=== PATIENT | female | born 1960 | race Caucasian/White ===

== ENCOUNTER 2018-04-03 09:42 | Inpatient (IN) | payer OTHER ==
[~2018-04-03] VITALS: Ht 152.4 cm; Wt 63.5 kg
[~2018-04-03 09:42] MED LIST: AUGMENTIN 875-1 EACH PO; PERCOCET 5-3251 EACH PO
--- NOTE | 2018-04-03 09:53 | ED GENERAL ADULT ---
History of Present Illness General Chief Complaint: Chest Pain Stated Complaint: CHEST PAIN AND SOB Source: patient Exam Limitations: no limitations Vital Signs & Intake/Output Vital Signs & Intake/Output Vital Signs Date Time Temp Pulse Resp B/P B/P Pulse O2 O2 Flow FiO2 Mean Ox Delivery Rate 04/04 1456 98.6 84 20 122/70 96 Room Air ED Intake and Output 04/05 0000 04/04 1200 Intake Total 400 120 Output Total 650 Balance -250 120 Intake, Oral 400 120 Output, Urine 650 Patient 140 lb Weight Weight Bed scale Measurement Method Allergies Coded Allergies: No Known Drug Allergies (NONE 04/03/18) Reconcile Medications Aspirin (Ecotrin*) 81 MG TABLET.DR 1 TAB PO DAILY hyperlipidemia . Atorvastatin Calcium 80 MG TABLET 1 TAB PO DAILY Hyperlipidemia . Nicotine (Nicotine Patch) 21 MG/24 HOUR PATCH.TD24 1 PAT TOP DAILY Smoking Cessation . Triage Note: PT STATES SHE HAS HAD CHEST PAIN THAT HAS BEEN GOING ON FOR A COUPLE OF DAYS. PT STATES SOMETIMES THE PAIN IS SHARP AND SOMETIMES SHE HAS IT GOING INTO HER LEFT ARM. PT STATES NAUSEA AND HER LIPS FEEL FUNNY ON AND OFF. Triage Nurses Notes Reviewed? yes HPI: 57-year-old female presents with 2 days of chest pain in the mid chest with radiation to the left chest sometimes. She reports she is a smoker. She denies diabetes, history of ID. She denies any medical issues or chronic medications. She denies shortness of breath, phlegm, hemoptysis, leg swelling, recent immobilization or surgery. She denies history of DVT or PE. Past History Travel History Traveled to [place] past 21 day No Medical History Any Pertinent Medical History? 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 No Review of Systems Review of Systems Constitutional: Denies: no symptoms. EENTM: Denies: no symptoms. Respiratory: Denies: no symptoms. Cardiovascular: Reports: chest pain. Denies: edema, orthopena, palpitations, peripheral edema, syncope. GI: Denies: abdominal pain, constipation, diarrhea. Musculoskeletal: Denies: back pain. Skin: Denies: no symptoms. Neurological/Psychological: Denies: no symptoms. Hematologic/Endocrine: Denies: no symptoms. Physical Exam Physical Exam General Appearance: well developed/nourished Head: atraumatic Eyes: Bilateral: normal appearance, PERRL. Ears, Nose, Throat: normal ENT inspection Neck: normal inspection, JVD Respiratory: normal breath sounds, chest non-tender, no respiratory distress Cardiovascular: regular rate/rhythm Gastrointestinal: soft, non-tender Neurologic/Psych: no motor/sensory deficits, oriented x 3 Skin: intact, normal color, warm/dry Core Measures ACS in differential dx? Yes CVA/TIA Diagnosis: No Sepsis Present: No Sepsis Focused Exam Completed? No Progress Differential Diagnoses 57-year-old presents with chest pain, showing a right bundle branch block which is new. Concern for PE. Vital signs are stable at this time. We will start evaluation, order d-dimer and get a chest x-ray with labs. Less likely to be ID. Patient has had 3 days of pain without any exertional component, shortness of breath. Plan of Care: Orders Procedure Date/time Status Discharge Patient 04/04 UNK Active Initial ED EKG: sinus rate of 96, nl axis, QRSD 132, RBBB. no acute St-T changes. compared to 08/04/04- no acute change Prior EKG: changed Comments: 04/[address] 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 Once the patient to be on aspirin and not heparinize at this point. Luis Schmitz accepted the patient. MOD was informed. We will try nitroglycerin for the pain. HEART score of 4 Departure Departure Time of Disposition: 1257 Disposition: STILL A PATIENT Condition: Stable Clinical Impression Primary Impression: Chest pain Referrals: Mindi MCNEILL,Austin Méndez (PCP/Family) Departure Forms: Customer Survey General Discharge Information Prescriptions: Current Visit Scripts Aspirin (Ecotrin*) 1 TAB PO DAILY #30 TAB . Atorvastatin Calcium 1 TAB PO DAILY #30 TAB . Nicotine (Nicotine Patch) 1 PAT TOP DAILY #28 PAT . Admission Note Spoke With: Nadir MCNEILL,John Paul Hightower Documentation of Exam: Documentation of any treatments & extenuating circumstances including Concerns Regarding Discharge (functional status, medication knowledge or non-compliance, living conditions, etc.) that warrant an admission rather than observation: 57- year-old female with elevated heart score. With new EKG changes compared to the previous EKG. Risk factors include smoking and age. The patient will need cardiology evaluation for further workup for her chest pain. Critical Care Note Critical Care Note Critical Care Time: non-applicable
[2018-04-03 10:19] LABS: ABSOLUTE BASOPHIL COUNT 0 /CUMM (0.0-0.2); ABSOLUTE EOSINOPHIL COUNT 0 /CUMM (0.0-0.7); ABSOLUTE GRANULOCYTE CT 3.9 /CUMM (1.4-6.5); ABSOLUTE LYMPH COUNT 1.5 /CUMM (1.2-3.4); ABSOLUTE MONOCYTE COUNT 0.5 /CUMM (0.10-0.60); BASOPHIL % 0.6 % (0.0-2.0); EOSINOPHIL % 0.8 % (0-5); GRANULOCYTE % 64.6 % (42.2-75.2); HEMATOCRIT 42.6 % (37-47); MEAN CORPUSCULAR HGB 29.2 PG (27.0-31.0); MEAN CORPUSCULAR VOLUME 85.8 FL (81.0-99.0); MEAN PLATELET VOLUME 7.8 FL (7.4-10.4); PLATELET COUNT 327 /CUMM (130-400); RED BLOOD CELL CT 4.97 /CUMM (4.20-5.40)
--- NOTE | 2018-04-03 11:46 | RADIOLOGY REPORT ---
EXAMINATION: XR CHEST CLINICAL INFORMATION: Chest pain. COMPARISON: None TECHNIQUE: 2 views of the chest were obtained. FINDINGS: The cardiomediastinal silhouette is within normal limits in size. Lungs bilaterally are symmetrically expanded and clear. No focal consolidation, effusion or pneumothorax is seen. There there is a minimal convex right thoracic scoliosis. IMPRESSION: No acute cardiopulmonary process.
--- NOTE | 2018-04-03 13:01 | History & Physical ---
Mabel Vásquez 04/03/18 1301: General Information and HPI MD Statement: I have seen and personally examined EDNA OLMEDO and documented this H&P. The patient is a 57 year old F who presented with a patient stated chief complaint of [chest pain]. Source of Information: patient Exam Limitations: no limitations History of Present Illness: Patient is a 57-year-old female with past medical history of fibromyalgia, hyperlipidemia, Faraz's thyroiditis came with a chief complaint of chest pain. Patient states that her chest pain has been going on since past 3 days, it is pressure-like and achy in nature and sharp intermittently. At worst it is 7/10. Patient also reports of shortness of breath on exertion and associated nausea. Patient states that she feels so weak that she has not moved a lot in the past 3 days and has been on the couch most of the time. Of note patient had chest pain 5 years ago and was diagnosed with costochondritis. At that time she had a stress test done which was negative for any cardiac abnormalities. Patient states that she continues to smoke around half a pack to a pack a day and stated that she wants to abstain while in hospital and refused nicotine patch. Her review of system is also positive for headache which is improved after Tylenol, urinary urgency and hesitancy but no burning micturition. Patient states that her urinary symptoms have been going on since past 1 month. She denies any fever or chills. Patient denies any palpitations, abdominal discomfort, pain or swelling in the legs. She lives at home with family, and does not take any medications other than homeopathic prescriptions. 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 Home Who Do You Live With? spouse, child Smoking Status: Current Some Day Smoker ETOH Use: denies use Illicit Drug Use: denies illicit drug use Functional Ability ADLs Independent: dressing, eating, toileting, bathing. Ambulation: independent Review of Systems Review of Systems Constitutional: Reports: see HPI. Exam & Diagnostic Data Last 24 Hrs of Vital Signs/I&O Vital Signs Date Time Temp Pulse Resp B/P B/P Pulse O2 O2 Flow FiO2 Mean Ox Delivery Rate 04/03 1332 98.1 04/03 1227 98.1 04/03 1221 98.1 82 18 133/74 99 Room Air Room Air 04/03 1147 98.5 82 18 130/68 97 Room Air 04/03 1000 97 Room Air Room Air 04/03 0952 97.8 97 18 179/97 97 Room Air Intake & Output 04/03 1600 04/03 0800 04/03 0000 Intake Total 1000 Output Total Balance 1000 Intake, IV 1000 Patient 62.596 kg Weight Weight Reported by Patient Measurement Method Physical Exam General Appearance Alert, Oriented X3, Cooperative, No Acute Distress Skin No Rashes Skin Temp/Moisture Exam: Warm/Dry HEENT Atraumatic Neck Supple, No JVD Cardiovascular Regular Rate, Normal S1, Normal S2 Lungs Clear to Auscultation, Normal Air Movement Abdomen Normal Bowel Sounds, Soft, No Tenderness Neurological Normal Gait, Normal Speech Extremities No Edema Assessment/Plan Assessment: Patient is a 57-year-old female with past medical history of fibromyalgia, hyperlipidemia, Faraz's thyroiditis came with a chief complaint of chest pain. Patient states that her chest pain has been going on since past 3 days, it is pressure-like and achy in nature and sharp intermittently. At worst it is 7/10. Patient also reports of shortness of breath on exertion and associated nausea. Patient states that she feels so weak that she has not moved a lot in the past 3 days and has been on the couch most of the time. Of note patient had chest pain 5 years ago and was diagnosed with costochondritis. At that time she had a stress test done which was negative for any cardiac abnormalities. Patient states that she continues to smoke around half a pack to a pack a day and stated that she wants to abstain while in hospital and refused nicotine patch. Her review of system is also positive for headache which is improved after Tylenol, urinary urgency and hesitancy but no burning micturition. Patient states that her urinary symptoms have been going on since past 1 month. She denies any fever or chills. Labs and vitals as above. Chest x-ray not significant for any acute pulmonary pathology. Problem list Chest pain, rule out ACS History of Faraz's thyroiditis History of hyperlipidemia History of fibromyalgia. Pain points shoulder bilaterally base of neck and upper back. EKG shows old Q waves in inferior leads, ST segment depression in V4 V5, and new right bundle branch block as compared to her previous EKG from 2004. Patient also has diffuse nonspecific T wave changes. Assessment and plan Will monitor the patient on telemetry floor, rule out ACS through serial troponins and EKG. Her first set of troponin is negative. Will get cardiology consult. Will order echocardiogram. Patient got loading dose of aspirin in the ER, we will maintain her on 81 aspirin daily. Will check her lipid panel and empirically start her on atorvastatin given her EKG changes and high suspicion of ACS. Patient is not on any medical treatment for Faraz's thyroiditis, she states the last time she followed up with an mounting inspector was 2 and half years ago, she was initially put on some infusion treatments but she stopped taking them. Lately patient has been taking TYROSIN for her Faraz's thyroiditis and states that it has been helping. Will check her TSH and free T4. If abnormal, she might need endocrinology consult. Patient has a UA positive for leukocyte esterase and white blood cell, however she states that her urinary hesitancy and urgency are going on since 1 month, we will obtain urine culture and follow-up. Patient smokes half a pack to 1 pack per day, she is currently refusing for nicotine patch, and states that she will ask for it when she needs it. DVT prophylaxis subcutaneous Lovenox Patient is full code. As Ranked By This Provider Problem List: 1. Chest pain Core Measures/Misc (05/28) Acute Coronary Syndrome ACS Diagnosis: Yes Congestive Heart Failure Congestive Heart Failure Diagnosis No Cerebrovascular Accident CVA/TIA Diagnosis: No VTE (View Protocol) VTE Risk Factors Age>40 No Mechanical VTE Prophylaxis d/t N/A MechProphylax Ordered No VTE Pharm Prophylaxis d/t NA PharmProphylax ordered Sepsis (View protocol) Sepsis Present: No If YES complete Sepsis Event Note If YES complete Sepsis Event Note John Paul Schmitz 04/03/18 2722: General Information and HPI Allergies/Medications Allergies: Coded Allergies: No Known Drug Allergies (NONE 04/03/18) Core Measures/Misc (05/28) Sepsis (View protocol) If YES complete Sepsis Event Note If YES complete Sepsis Event Note Attending MD Review Statement Attending Statement Attending MD Statement: examined this patient, discuss w/resident/PA/ABRASIVE MIXER HELPER, agreed w/resident/PA/ABRASIVE MIXER HELPER, reviewed EMR data (avail) Attending Assessment/Plan: 57 yr old female with pmh of smoking ( 1/2 to 1 PPD since age 15) , HLD, Fibromyalgia, Hashimotos thyroiditis not on any meds, ? lyme ds or babesiosis for which she got abx 3 years ago, costochondritis 5 years ago , stress test done at [facility] in [place] 5 years ago who follows up with Dr Obregon presented with c/c of chest pain for 3 days, which is 7/10 in severity on and off , mid sternal with occasional radiation to left axilla . Pt also has been having nausea for one week but no vomiting. also some exertional sob. Pt on EKG in ER showed some q waves in inferior leads and shows new RBBB and LPFB and some ST-T changes ( this was compared to previous ecg from 2003 in our system) . Pt says she had EKG done at her PCP office 2 months ago. Chest pain r/o ACS - will admit her to telemetry. do serial troponins. repeat ekg in am. will get stress test results from deputy sheriff chief and ekg from pcp office. will f/u on cardiology recommendations. cont on asa and statin. Nicotine dependence- start on nicotine patch. ? faraz thyroiditis- will get TSH and free T4.
--- NOTE | 2018-04-03 15:15 | Cons- Cardiology ---
General Information and HPI Consulting Request Date of Consult: 04/03/18 Requested By: Nadir MCNEILL,John Paul Hightower Reason for Consult: Chest pain History of Present Illness: The patient is a 57-year-old female with history of fibromyalgia, hyperlipidemia , and Gregoria's thyroiditis who presents with complaint of chest discomfort the chest discomfort has been occurring for the past 3 days. She describes it as sometimes substernal and sometimes on the left side. The pain is sometimes sharp and sometimes dull. The discomfort varies up to a 9 out of 10 in severity. She also notes shortness of breath associated with chest discomfort and intermittent nausea. She notes that 5 years ago she had chest pain, and she was diagnosed with costochondritis. She had a stress test at that time which was negative. No lightheadedness or dizziness. No nausea or vomiting. No palpitations. No diaphoresis. The patient unfortunately continues to smoke one half pack per day. Allergies/Medications Allergies: Coded Allergies: No Known Drug Allergies (NONE 04/03/18) Home Med List: No Known Home Medications Current Medications: Current Medications Sig/Samir Start time Last Medication Dose Route Stop Time Status Admin Acetaminophen 650 MG Q8P PRN 04/03 1415 AC PO Acetaminophen 650 MG ONCE ONE 04/03 1230 DC 04/03 PO 04/03 1231 1227 Acetaminophen 0 .STK-MED ONE 04/03 1227 DC PO Aspirin 81 MG DAILY 04/04 0900 AC PO Aspirin 0 .STK-MED ONE 04/03 1251 DC PO Aspirin 325 MG ONCE ONE 04/03 1245 DC 04/03 PO 04/03 1246 1250 Atorvastatin Calcium 20 MG 1700 04/03 1700 DC PO Atorvastatin Calcium 80 MG 0 04/03 1700 AC PO Enoxaparin Sodium 40 MG DAILY 04/04 0900 AC SC Lactated Ringer's 1,000 ML ONCE ONE 04/03 1015 DC 04/03 IV 04/03 1016 1110 Nicotine 0 .STK-MED ONE 04/03 1457 DC TOP Nicotine 21 MG DAILY 04/03 1445 AC 04/03 TOP 1459 Review of Systems Review of Systems: No rash. No tremor. No fever. No chills. All other systems were reviewed, and were noted to be negative. 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 Home Who Do You Live With? spouse, child Smoking Status: Current Some Day Smoker ETOH Use: denies use Illicit Drug Use: denies illicit drug use Functional Ability ADLs Independent: dressing, eating, toileting, bathing. Ambulation: independent Exam & Diagnostic Data Vital Signs and I&O Vital Signs Date Time Temp Pulse Resp B/P B/P Pulse O2 O2 Flow FiO2 Mean Ox Delivery Rate 04/03 1615 98.2 76 20 142/80 97 Room Air 04/03 1615 97 Room Air 04/03 1556 98.4 92 18 140/86 99 Room Air 04/03 1332 98.1 04/03 1227 98.1 04/03 1221 98.1 82 18 133/74 99 Room Air Room Air 04/03 1147 98.5 82 18 130/68 97 Room Air 04/03 1000 97 Room Air Room Air 04/03 0952 97.8 97 18 179/97 97 Room Air Intake & Output 04/03 1600 04/03 0800 04/03 0000 04/02 1600 04/02 0800 04/02 0000 Intake Total 1000 Output Total Balance 1000 Intake, IV 1000 Patient 138 lb Weight Weight Reported by Patient Measurement Method Physical Exam: Gen: The patient is in no acute distress HEENT: Normal nose, ears, and oropharynx. Pupils equal bilaterally. Conjunctiva normal. Neck: Supple with no JVD, no masses, and no thyromegaly Lungs: Clear to auscultation with normal respiratory effort Heart: RRR, S1, S2, no murmurs. No peripheral edema, 2+ pulses in the lower extremities bilaterally Abdomen: Soft, nontender, no masses. No hepatomegaly. No splenomegaly Extremities: No clubbing or cyanosis. Normal muscle strength in the upper and lower extremities Skin: Normal skin turgor with no skin ulcers or lesions noted. Neuro: Cranial nerves intact. Sensation intact Psych: Alert and oriented x 3 with appropriate affect Labs/Sebastián Results: Laboratory Tests 04/03 04/03 1550 1013 Chemistry Troponin I (< 0.11 ng/ml) < 0.01 Urines Urine Color (YEL,AMB,STR) YEL Urine Clarity (CLEAR) CLEAR Urine pH (5.0 - 8.0) 6.0 Ur Specific [place] (1.001 - 1.035) 1.025 Urine Protein (NEG,<30 MG/DL) TRACE H Urine Ketones (NEG) NEG Urine Nitrite (NEG) NEG Urine Bilirubin (NEG) NEG Urine Urobilinogen (0.1 - 1.0 EU/dl) 0.2 Ur Leukocyte Esterase (NEG) SMALL H Ur Microscopic SEDIMENT EXAMINED Urine RBC (0 - 5 /HPF) 1-3 Urine WBC (0 - 2 /HPF) 10-15 H Ur Epithelial Cells (NONE,FEW) MANY H Urine Bacteria (NEG/NONE) FEW H Urine Hemoglobin (NEG) SMALL H Urine Glucose (N MG/DL) NEG 04/03 1008 Chemistry Sodium (137 - 145 mmol/L) 142 Potassium (3.5 - 5.1 mmol/L) 3.8 Chloride (98 - 107 mmol/L) 105 Carbon Dioxide (22 - 30 mmol/L) 25 Anion Gap (5 - 16) 12 BUN (7 - 17 mg/dL) 19 H Creatinine (0.5 - 1.0 mg/dL) 0.5 Estimated GFR (>60 ml/min) > 60 BUN/Creatinine Ratio (7 - 25 %) 38.0 H Glucose (65 - 99 mg/dL) 106 H Calcium (8.4 - 10.2 mg/dL) 10.1 Total Bilirubin (0.2 - 1.3 mg/dL) 0.3 AST (14 - 36 U/L) 35 ALT (9 - 52 U/L) 49 Alkaline Phosphatase (<127 U/L) 103 Troponin I (< 0.11 ng/ml) < 0.01 Total Protein (6.3 - 8.2 g/dL) 7.3 Albumin (3.5 - 5.0 g/dL) 4.3 Globulin (1.9 - 4.2 gm/dL) 3.0 Albumin/Globulin Ratio (1.1 - 2.2 %) 1.4 Triglycerides (<150 mg/dL) 173 H Cholesterol (<200 MG/DL) 294 H LDL Cholesterol, Calc (65 - 129 mg/dL) 205 H HDL Cholesterol (40 - 60 mg/dL) 55 Cholesterol/HDL Ratio (0.00 - 4.23 %) 5 H TSH (0.270 - 4.200 uIU/mL) 0.652 Free T4 (0.64 - 1.79 ng/dL) 0.98 Coagulation D-Dimer High Sensitivty (0 - 243 ng/ml) < 200 Hematology CBC w Diff NO MAN DIFF REQ WBC (4.8 - 10.8 /CUMM) 6.0 RBC (4.20 - 5.40 /CUMM) 4.97 Hgb (12.0 - 16.0 G/DL) 14.5 Hct (37 - 47 %) 42.6 MCV (81.0 - 99.0 FL) 85.8 MCH (27.0 - 31.0 PG) 29.2 MCHC (33.0 - 37.0 G/DL) 34.0 RDW (11.5 - 14.5 %) 14.0 Plt Count (130 - 400 /CUMM) 327 MPV (7.4 - 10.4 FL) 7.8 Gran % (42.2 - 75.2 %) 64.6 Lymphocytes % (20.5 - 51.1 %) 25.8 Monocytes % (1.7 - 9.3 %) 8.2 Eosinophils % (0 - 5 %) 0.8 Basophils % (0.0 - 2.0 %) 0.6 Absolute Granulocytes (1.4 - 6.5 /CUMM) 3.9 Absolute Lymphocytes (1.2 - 3.4 /CUMM) 1.5 Absolute Monocytes (0.10 - 0.60 /CUMM) 0.5 Absolute Eosinophils (0.0 - 0.7 /CUMM) 0 Absolute Basophils (0.0 - 0.2 /CUMM) 0 Diagnostic Data EKG Results EKG tracings independently reviewed, and reveals normal sinus rhythm at 96, left atrial normality, right bundle branch block, and left posterior fascicular block CXR Results Negative Assessment/Plan Assessment/Plan 57-year-old female with history of fibromyalgia, hyperlipidemia, and costochondritis presenting with chest discomfort 3 days. She is noted to have new right bundle branch block on her EKG. Recommendations: * Monitor on telemetry overnight * Check serial troponin to rule out myocardial infarction * Echocardiogram in the hospital if possible, or else as an outpatient * Aspirin 81 mg daily * Continue atorvastatin * Stress testing, probably as outpatient if the patient remains stable Consult Acknowledgment - Thank you for your consult request.
--- NOTE | 2018-04-03 15:43 | Admission Certification ---
Admission Certification Certification Statement - As attending physician, I certify that at the time of - admission, based on clinical presentation, severity of - symptoms, need for further diagnostic testing and - therapeutic interventions, and risk of adverse outcomes - without in-hospital treatment, in my clinical assessment, - this patient requires an acute hospital stay for a minimum - of two nights or longer. I have also considered psychsocial - factors such as support system, advanced age, financial - issues, cognitive issues, and failed out-patient treatments, - past re-admission history, safety of patient, and lack of - compliance as applicable. Specific rationale supporting this admission is: chest pain r/o ACS
[2018-04-03 16:15] VITALS: BP 142/80
[2018-04-03 22:56] VITALS: BP 158/90
[2018-04-04 06:00] VITALS: BP 140/90
--- NOTE | 2018-04-04 06:45 | PN- Housestaff ---
Jennifer Marcano 04/04/18 0645: Subjective Follow-up For: Chest Pain Tele-Events Since Last Visit: Normal sinus rhythm, 72, 0.14, 0.16 Subjective: Patient seen and examined at bedside this morning. Patient claims her chest pain has significantly reduced from yesterday and no longer radiates to the left axillary region as it did on the day of admission with associated numbness and tingling. The patient's pain character has been described in multiple ways including pressure and sharp. Patient denies any shortness of breath, diaphoresis, palpitations, nausea, vomiting, abdominal pain or any constipation this morning. Vital signs remained stable. Review of Systems Constitutional: Denies: see HPI. Objective Last 24 Hrs of Vital Signs/I&O Vital Signs Date Time Temp Pulse Resp B/P B/P Pulse O2 O2 Flow FiO2 Mean Ox Delivery Rate 04/04 0600 98.1 76 18 140/90 97 04/03 2256 98.2 69 18 158/90 96 Room Air 04/03 1615 98.2 76 20 142/80 97 Room Air 04/03 1615 97 Room Air 04/03 1556 98.4 92 18 140/86 99 Room Air 04/03 1332 98.1 04/03 1227 98.1 04/03 1221 98.1 82 18 133/74 99 Room Air Room Air 04/03 1147 98.5 82 18 130/68 97 Room Air Intake & Output 04/04 1600 04/04 0800 04/04 0000 Intake Total 120 120 Output Total Balance 120 120 Intake, Oral 120 120 Patient 140 lb 140 lb Weight Weight Bed scale Bed scale Measurement Method Physical Exam General Appearance: Alert, Oriented X3, Cooperative, No Acute Distress HEENT: PERRLA, EOMI, Mucous Membr. moist/pink Neck: No JVD, No thryomegaly Cardiovascular: Regular Rate, Normal S1, Normal S2 Lungs: Clear to Auscultation, Normal Air Movement Abdomen: Normal Bowel Sounds, Soft, No Tenderness Neurological: Strength at 5/5 X4 Ext, Normal Tone, Sensation Intact, Cranial Nerves 3-12 NL, Reflexes 2+ Extremities: No Cyanosis, No Edema Vascular: Normal Pulses, Pulses Symmetrical Current Medications: Current Medications Sig/Samir Start time Last Medication Dose Route Stop Time Status Admin Acetaminophen 650 MG Q8P PRN 04/03 1415 AC 04/03 PO 2244 Acetaminophen 650 MG ONCE ONE 04/03 1230 DC 04/03 PO 04/03 1231 1227 Acetaminophen 0 .STK-MED ONE 04/03 1227 DC PO Aspirin 81 MG DAILY 04/04 0900 AC 04/04 PO 0741 Aspirin 0 .STK-MED ONE 04/03 1251 DC PO Aspirin 325 MG ONCE ONE 04/03 1245 DC 04/03 PO 04/03 1246 1250 Atorvastatin Calcium 20 MG 1700 04/03 1700 DC PO Atorvastatin Calcium 80 MG 0 04/03 1700 AC PO Enoxaparin Sodium 40 MG DAILY 04/04 0900 AC 04/04 SC 0741 Nicotine 0 .STK-MED ONE 04/03 1457 DC TOP Nicotine 21 MG DAILY 04/03 1445 AC 04/04 TOP 0742 Last 24 Hrs of Lab/Sebastián Results Last 24 Hrs of Labs/Mics: Laboratory Tests 04/04/18 0600: Anion Gap 12, Estimated GFR > 60, BUN/Creatinine Ratio 28.3 H 04/03/18 2210: Troponin I < 0.01 04/03/18 1550: Troponin I < 0.01 Assessment/Plan Assessment: Patient is a 57-year-old female with a [id number] smoking history of past medical history of fibromyalgia, hyperlipidemia, Gregoria's thyroiditis with recent ultrasound reported to patient demonstrating 2 new nodules measuring at 2 -3 mm each, chronic Lyme disease with reported concurrent babesiosis as per patient, costochondritis 5 years ago all for which patient follows up with a naturopathic doctor. She presented to the ED 1 day ago with a presentation of intermittent chest pain and tightness that radiated to the left axilla and arms bilaterally associated with tingling to the fingers and nausea and dyspnea on exertion. Checks x-ray negative for any cardio pulmonary pathologies. EKG demonstrated old Q waves in inferior leads, ST depressions in V4 and V5, new right bundle branch block and nonspecific T-wave abnormalities. Last known EKG in 2003 demonstrated normal sinus rhythm with no previous findings. As per patient, reported to have an EKG several weeks prior at her primary care doctors , Dr. Obregon. Troponins on admission were negative 3. Problem list: 1. Chest pain 2. Hyperlipidemia 3. Gregoria's thyroiditis 4. Fibromyalgia 5. History of tobacco use 6. 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 Chest pain Pain Ratin Pain Location: midsternum Pain Goal: Pain 4 or less Pain Plan: as per pain pathway Tomorrow's Labs & Rationales: N/A DVT/Prophylaxis: mechanical, pharmacological John Paul Schmitz 04/04/18 1304: Attending MD Review Statement Attending Statement Attending MD Statement: examined this patient, discuss w/resident/PA/DIRECTOR WHOLESALE, agreed w/resident/PA/DIRECTOR WHOLESALE, reviewed EMR data (avail), discussed with nursing, discussed with case mgmt Attending Assessment/Plan: Chest pain- trop negative and chest pain better today. will f/u on cardio recommendations. ehco pending. cont on asa and lipitor. cholesterol levels high. Smoking cessation- counselled pt to quit smoking. d/w pt the care plan.
--- NOTE | 2018-04-04 08:11 | PN- Student ---
Subjective Subjective: Pt was seen and examined at bedside this morning. She is feeling well overall, though fatigued and like "something is not quite right." Chest pain is reduced from yesterday and does not radiate to L axilla as it did yesterday or down into her arms. The pain feels like it is sharp and tight. She feels like her breathing is a bit shallow but is otherwise not having difficulty breathing. She denies diaphoresis, palpitations, nausea, abdominal pain, constipation, and leg pain this morning. Objective Objective: Vital Signs Date Time Temp Pulse Resp B/P B/P Pulse O2 O2 Flow FiO2 Mean Ox Delivery Rate 04/04 0600 98.1 76 18 140/90 97 04/03 2256 98.2 69 18 158/90 96 Room Air 04/03 1615 98.2 76 20 142/80 97 Room Air 04/03 1615 97 Room Air 04/03 1556 98.4 92 18 140/86 99 Room Air 04/03 1332 98.1 04/03 1227 98.1 04/03 1221 98.1 82 18 133/74 99 Room Air Room Air 04/03 1147 98.5 82 18 130/68 97 Room Air 04/03 1000 97 Room Air Room Air 04/03 0952 97.8 97 18 179/97 97 Room Air Intake & Output 04/04 1600 04/04 0800 04/04 0000 Intake Total 120 120 Output Total Balance 120 120 Intake, Oral 120 120 Patient 140 lb 140 lb Weight Weight Bed scale Bed scale Measurement Method Tele: NSR from 63-75bpm with BBB at 00:00 PE: Gen - NAD, cooperative Psych - AOx4 Neuro - CN 3-12 intact except for L sided parasthesia on the face, biceps and patellar reflexes symmetrical Chest wall - no tenderness to palpation CV - RRR no MRG Pulm - CTA BL, good air entry Abd - +BS, soft, nontender, nondistended Ext - warm and well perfused, DP and PT pulses 2+ BL, no edema Results Results: Laboratory Tests Laboratory Tests 04/04 04/03 04/03 0600 2210 1550 Chemistry Sodium (137 - 145 mmol/L) 143 Potassium (3.5 - 5.1 mmol/L) 4.3 Chloride (98 - 107 mmol/L) 104 Carbon Dioxide (22 - 30 mmol/L) 27 Anion Gap (5 - 16) 12 BUN (7 - 17 mg/dL) 17 Creatinine (0.5 - 1.0 mg/dL) 0.6 Estimated GFR (>60 ml/min) > 60 BUN/Creatinine Ratio (7 - 25 %) 28.3 H Troponin I (< 0.11 ng/ml) < 0.01 < 0.01 04/03 04/03 1013 1008 Chemistry Sodium (137 - 145 mmol/L) 142 Potassium (3.5 - 5.1 mmol/L) 3.8 Chloride (98 - 107 mmol/L) 105 Carbon Dioxide (22 - 30 mmol/L) 25 Anion Gap (5 - 16) 12 BUN (7 - 17 mg/dL) 19 H Creatinine (0.5 - 1.0 mg/dL) 0.5 Estimated GFR (>60 ml/min) > 60 BUN/Creatinine Ratio (7 - 25 %) 38.0 H Glucose (65 - 99 mg/dL) 106 H Calcium (8.4 - 10.2 mg/dL) 10.1 Total Bilirubin (0.2 - 1.3 mg/dL) 0.3 AST (14 - 36 U/L) 35 ALT (9 - 52 U/L) 49 Alkaline Phosphatase (<127 U/L) 103 Troponin I (< 0.11 ng/ml) < 0.01 Total Protein (6.3 - 8.2 g/dL) 7.3 Albumin (3.5 - 5.0 g/dL) 4.3 Globulin (1.9 - 4.2 gm/dL) 3.0 Albumin/Globulin Ratio (1.1 - 2.2 %) 1.4 Triglycerides (<150 mg/dL) 173 H Cholesterol (<200 MG/DL) 294 H LDL Cholesterol, Calc (65 - 129 mg/dL) 205 H HDL Cholesterol (40 - 60 mg/dL) 55 Cholesterol/HDL Ratio (0.00 - 4.23 %) 5 H TSH (0.270 - 4.200 uIU/mL) 0.652 Free T4 (0.64 - 1.79 ng/dL) 0.98 Coagulation D-Dimer High Sensitivty (0 - 243 ng/ml) < 200 Hematology CBC w Diff NO MAN DIFF REQ WBC (4.8 - 10.8 /CUMM) 6.0 RBC (4.20 - 5.40 /CUMM) 4.97 Hgb (12.0 - 16.0 G/DL) 14.5 Hct (37 - 47 %) 42.6 MCV (81.0 - 99.0 FL) 85.8 MCH (27.0 - 31.0 PG) 29.2 MCHC (33.0 - 37.0 G/DL) 34.0 RDW (11.5 - 14.5 %) 14.0 Plt Count (130 - 400 /CUMM) 327 MPV (7.4 - 10.4 FL) 7.8 Gran % (42.2 - 75.2 %) 64.6 Lymphocytes % (20.5 - 51.1 %) 25.8 Monocytes % (1.7 - 9.3 %) 8.2 Eosinophils % (0 - 5 %) 0.8 Basophils % (0.0 - 2.0 %) 0.6 Absolute Granulocytes (1.4 - 6.5 /CUMM) 3.9 Absolute Lymphocytes (1.2 - 3.4 /CUMM) 1.5 Absolute Monocytes (0.10 - 0.60 /CUMM) 0.5 Absolute Eosinophils (0.0 - 0.7 /CUMM) 0 Absolute Basophils (0.0 - 0.2 /CUMM) 0 Urines Urine Color (YEL,AMB,STR) YEL Urine Clarity (CLEAR) CLEAR Urine pH (5.0 - 8.0) 6.0 Ur Specific [place] (1.001 - 1.035) 1.025 Urine Protein (NEG,<30 MG/DL) TRACE H Urine Ketones (NEG) NEG Urine Nitrite (NEG) NEG Urine Bilirubin (NEG) NEG Urine Urobilinogen (0.1 - 1.0 EU/dl) 0.2 Ur Leukocyte Esterase (NEG) SMALL H Ur Microscopic SEDIMENT EXAMINED Urine RBC (0 - 5 /HPF) 1-3 Urine WBC (0 - 2 /HPF) 10-15 H Ur Epithelial Cells (NONE,FEW) MANY H Urine Bacteria (NEG/NONE) FEW H Urine Hemoglobin (NEG) SMALL H Urine Glucose (N MG/DL) NEG Assessment/Plan Assessment: Pt is a 57YOF with ~40pack year smoking hx with a PMH of fibromyalgia, HLD, Gregoria's Thyroiditis with recent US reported by pt to show 2 nodules 2-3mm each, chronic Lyme disease with possible concurrent babesiosis, and costochondritis 14yrs ago for all of which she is using natropathic remedies. She presented to the ED 1 day ago with 3 days of intermittent chest pain and tightness that radiates into the L axilla and arms BL associated with nausa and dyspnea on exertion. CXR showed no thoracic pathologies. EKG showed old Q waves in the inferior leads, ST depression in V4 and V5, new RBBB, new LPFB and diffuse, nonspecific T wave abnormalities. Last known EKG in 2003 showed NSR with none of the above findings. EKG obtained from PCP performed on 01/18/2018 shows RBBB and potential lateral ischemia. Troponins x3 were WNL. UA shows subacute bacteruria. Lipid panel showes elevated cholesterol, TGs, and LDL with chol/HDL of 5. Pt reported the following naturopathic medications: * Banderol 25 drops BID * Samento 25 drops BID * Stevia 15 drops BID * Artemisinin 1 pill BID for 2weeks, then 2 weeks with no pill, then repeat Pt's most recent EKG obtained from her PCP Dr. Obregon. EKG 01/18/2018 - NSR with RBBB and T wave abnormality suggesting lateral ischemia 1. Chest pain with associated dyspnea and nausea * Pt's chest pain cannot be attributed to EKG finding at this time. However, serial troponins indicate there is no acute myocardial injury. Pt's symptoms consistent with acute coronary syndrome. Her ASCVD risk is 10.1%. * Based on risk, patient has been started on ASA, enoxaparin, and atorvastatin. * Pt has been extensively counseled on smoking cessation. * Await results of ECHO and repeat EKG. * F/u cardiology recommendation for stress test. 2. Tobacco Use * Pt has an extensive smoking hx. Has been counseled extensively on cessation. Is interested in being discharged with nicotine patches as she believes they are helping her currently. 3. Hyperlipidemia * Pt has hx of HLD for which she has previously refused medical therapy. She has been placed on a statin and agrees to continue after discharge. 4. Gregoria's Thyroiditis * Stable. TSH and freeT4 WNL. Pt reports outpatient US performed several weeks ago with small nodules found. She does not know of results and can't remember the name of the site where the US was performed. 5. Hx of Lyme disease and babesiosis * Pt using natropathic remedies at this time. Otherwise stable. 6. Fibromyalgia * Pt denies pain at this time. Stable. Diet: heart healthy DVT: enoxaparin Code: full
--- NOTE | 2018-04-04 14:20 | ECHOCARDIOGRAM REPORT ---
EDNA OLMEDO Age: 57 : 1960 Gender: F Exam Date: 04/03/2018 18:47 Exam Location: 1 [address] Ht (in): 60 Wt (lb): 138 BSA: 1.65 BP: 133 / 74 Ordering Physician: Mabel Vásquez MD Referring Physician: Surendra Brock MD Technologist: Magalis Apodaca [facility] Room Number: 171 Indications: Chest pain Rhythm: Sinus Technical Quality: Good FINDINGS Left Ventricle Normal size left ventricle. Normal left ventricular wall thickness. Normal left ventricular ejection fraction visually estimated at > 60%. Normal left ventricular wall motion. Abnormal relaxation filling pattern of the left ventricle for age (stage 1 diastolic dysfunction). Right Ventricle Normal right ventricular size and function. Right Atrium Normal right atrial size. Left Atrium Normal left atrial size. Mitral Valve Mild mitral annular calcification. Trace mitral regurgitation. Aortic Valve Diffuse thickening (sclerosis) of the aortic valve cusps without reduced excursion.no aortic stenosis. No aortic regurgitation. Tricuspid Valve Tricuspid valve not well visualized, grossly normal. Trace tricuspid regurgitation. No evidence of pulmonary hypertension. Pulmonic Valve Pulmonic valve not well visualized, grossly normal. Trace pulmonic regurgitation. Pericardium No pericardial effusion. Great Vessels Normal size aortic root. CONCLUSIONS Normal size left ventricle. Normal left ventricular wall thickness. Normal left ventricular ejection fraction visually estimated at > 60%. Abnormal relaxation filling pattern of the left ventricle for age (stage 1 diastolic dysfunction). Mild mitral annular calcification. Trace tricuspid regurgitation. Trace pulmonic regurgitation. Surendra Brock M.D. (Electronically Signed) Final Date: 04 April 2018 14:14 MEASUREMENTS (Male / Female) Normal Values 2D ECHO LV Diastolic Diameter PLAX 4.1 cm 4.2 - 5.9 / 3.9 - 5.3 cm LV Systolic Diameter PLAX 2.1 cm 2.1 - 4.0 cm LV Fractional Shortening PLAX 48.8 % 25 - 46 % LV Ejection Fraction 2D Teich 80.6 % IVS Diastolic Thickness 1.0 cm LVPW Diastolic Thickness 1.0 cm LV Relative Wall Thickness 0.5 RV Internal Dim ED PLAX 2.3 cm 1.9 - 3.8 cm LVOT Diameter 1.8 cm Aortic Root Diameter 2.7 cm LA Systolic Diameter LX 3.2 cm 3.0 - 4.0 / 2.7 - 3.8 cm LA Volume 33.0 cm 18 - 58 / 22 - 52 cm Ascending Aorta Diameter 3.0 cm DOPPLER AV Peak Velocity 126.0 cm/s AV Peak Gradient 6.4 mmHg AV Mean Velocity 82.1 cm/s AV Mean Gradient 3.0 mmHg AV Velocity Time Integral 24.3 cm LVOT Peak Velocity 99.6 cm/s LVOT Peak Gradient 4.0 mmHg LVOT Mean Velocity 55.3 cm/s LVOT Mean Gradient 2.0 mmHg LVOT Velocity Time Integral 17.4 cm LVOT Stroke Volume 44.3 cm AV Area Cont Eq vti 1.8 cm AV Area Cont Eq pk 2.0 cm MV Peak Velocity 79.7 cm/s MV Peak Gradient 2.5 mmHg MV Mean Velocity 43.4 cm/s MV Mean Gradient 1.0 mmHg Mitral E Point Velocity 54.8 cm/s Mitral A Point Velocity 69.1 cm/s Mitral E to A Ratio 0.8 MV PHT Velocity 67.8 cm/s MV Deceleration [place] 372.0 cm/s MV Pressure Half Time 54.7 ms MV Area PHT 4.0 cm MV Deceleration Time 301.0 ms TR Peak Velocity 117.0 cm/s TR Peak Gradient 5.5 mmHg Right Atrial Pressure 5.0 mmHg Pulmonary Artery Systolic Pressure 10.5 mmHg Right Ventricular Systolic Pressure 10.5 mmHg PV Peak Velocity 96.5 cm/s PV Peak Gradient 3.7 mmHg PV Mean Velocity 70.0 cm/s PV Mean Gradient 2.0 mmHg PV Velocity Time Integral 19.0 cm LV E' Lateral Velocity 6.5 cm/s Mitral E to LV E' Lateral Ratio 8.5 LV E' Septal Velocity 7.7 cm/s Mitral E to LV E' Septal Ratio 7.1
--- NOTE | 2018-04-04 14:55 | PN- Cardiology ---
Subjective Subjective: The patient reports that she is feeling much better. Chest discomfort is significantly improved. No palpitations. No diaphoresis. No shortness of breath. Objective Vital Signs and I&Os Vital Signs Date Time Temp Pulse Resp B/P B/P Pulse O2 O2 Flow FiO2 Mean Ox Delivery Rate 04/04 0600 98.1 76 18 140/90 97 04/03 2256 98.2 69 18 158/90 96 Room Air 04/03 1615 98.2 76 20 142/80 97 Room Air 04/03 1615 97 Room Air 04/03 1556 98.4 92 18 140/86 99 Room Air Intake & Output 04/04 1600 04/04 0800 04/04 0000 04/03 1600 04/03 0800 04/03 0000 Intake Total 177 968 4507 Output Total Balance 586 930 7961 Intake, IV 1000 Intake, Oral 120 120 Patient 140 lb 140 lb 138 lb Weight Weight Bed scale Bed scale Reported by Patient Measurement Method Physical Exam: Gen: NAD HEENT: normal Lungs: clear to auscultation, normal resp. effort Heart: RRR, S1, S2, no murmurs Abdomen: Soft, nontender, no masses Extremities: No clubbing, cyanosis, or edema. Neuro: Alert and oriented x 3, cranial nerves intact Current Medications: Current Medications Sig/Samir Start time Last Medication Dose Route Stop Time Status Admin Acetaminophen 650 MG Q8P PRN 04/03 1415 AC 04/03 PO 2244 Aspirin 81 MG DAILY 04/04 0900 AC 04/04 PO 0741 Atorvastatin Calcium 20 MG 1700 04/03 1700 DC PO Atorvastatin Calcium 80 MG 1700 04/03 1700 AC PO Enoxaparin Sodium 40 MG DAILY 04/04 0900 AC 04/04 SC 0741 Nicotine 0 .STK-MED ONE 04/03 1457 DC TOP Nicotine 21 MG DAILY 04/03 1445 04/04 TOP 0742 Results Last 48 Hrs of Labs/Mics: Laboratory Tests 04/04/18 0600: Anion Gap 12, Estimated GFR > 60, BUN/Creatinine Ratio 28.3 H 04/03/18 2210: Troponin I < 0.01 04/03/18 1550: Troponin I < 0.01 04/03/18 1013: Urine Color YEL, Urine Clarity CLEAR, Urine pH 6.0, Ur Specific [place] 1.025, Urine Protein TRACE H, Urine Ketones NEG, Urine Nitrite NEG, Urine Bilirubin NEG, Urine Urobilinogen 0.2, Ur Leukocyte Esterase SMALL H, Ur Microscopic SEDIMENT EXAMINED, Urine RBC 1-3, Urine WBC 10-15 H, Ur Epithelial Cells MANY H, Urine Bacteria FEW H, Urine Hemoglobin SMALL H, Urine Glucose NEG 04/03/18 1008: Anion Gap 12, Estimated GFR > 60, BUN/Creatinine Ratio 38.0 H, Glucose 106 H, Calcium 10.1, Total Bilirubin 0.3, AST 35, ALT 49, Alkaline Phosphatase 103, Troponin I < 0.01, Total Protein 7.3, Albumin 4.3, Globulin 3.0, Albumin/ Globulin Ratio 1.4, Triglycerides 173 H, Cholesterol 294 H, LDL Cholesterol, Calc 205 H, HDL Cholesterol 55, Cholesterol/HDL Ratio 5 H, TSH 0.652, Free T4 0.98, D-Dimer High Sensitivty < 200, CBC w Diff NO MAN DIFF REQ, RBC 4.97, MCV 85.8, MCH 29.2, MCHC 34.0, RDW 14.0, MPV 7.8, Gran % 64.6, Lymphocytes % 25.8, Monocytes % 8.2, Eosinophils % 0.8, Basophils % 0.6, Absolute Granulocytes 3.9, Absolute Lymphocytes 1.5, Absolute Monocytes 0.5, Absolute Eosinophils 0, Absolute Basophils 0 Recent Imaging Studies: Echocardiogram: Normal size left ventricle. Normal left ventricular wall thickness. Normal left ventricular ejection fraction visually estimated at > 60%. Abnormal relaxation filling pattern of the left ventricle for age (stage 1 diastolic dysfunction). Mild mitral annular calcification. Trace tricuspid regurgitation. Trace pulmonic regurgitation. Assessment/Plan Assessment/Plan Assessment: 1. Chest pain, ruled out for myocardial infarct 2. Abnormal EKG 3. Hyperlipidemia 4. Normal left LV function on echo Plan: * Discharge to home * Follow up with me in the office in 1-2 weeks * Nuclear stress test will be arranged as an outpatient * Call or return to the emergency department for further significant chest pain Continue telemetry? No
[2018-04-04 14:56] VITALS: BP 122/70
--- NOTE | 2018-04-04 14:57 | Patient Discharge Instructions ---
Discharge Instructions General Discharge Information You were seen/treated for: Chest Pain to rule out ACS Watch for these problems: Return to ED with worsening chest pain, palpiations, shortness of breath. Special Instructions: Return to ED with worsening chest pain, palpatations, shortness of breath Acute Coronary Syndrome Inclusion Criteria At DC or during hospital stay patient has or had the following: ACS DIAGNOSIS No Discharge Core Measures Meds if any: Prescribed or Continued at Discharge Meds if any: NOT Prescribed or Continued at Discharge Congestive Heart Failure Inclusion Criteria At DC or during hospital stay patient has or had the following: CHF DIAGNOSIS No Discharge Core Measures Meds if any: Prescribed or Continued at Discharge Meds if any: NOT Prescribed or Continued at Discharge Cerebrovascular accident Inclusion Criteria At DC or during hospital stay patient has or had the following: CVA/TIA Diagnosis No Discharge Core Measures Meds if any: Prescribed or Continued at Discharge Meds if any: NOT Prescribed or Continued at Discharge Venous thromboembolism Inclusion Criteria VTE Diagnosis No VTE Type NONE VTE Confirmed by (Test) NONE Discharge Core Measures - Per Current guidelines, there needs to be overlap - treatment for the first 5 days of Warfarin therapy. - If discharged on Warfarin prior to 5 days of - overlap therapy, the patient will need to be - assessed for post discharge needs including - *Post discharge parental anticoagulation - *Warfarin and/or parental anticoagulation education - *Follow up date to check INR post discharge At least 5 days overlap therapy as Inpatient No Meds if any: Prescribed or Continued at Discharge Note: Overlap Therapy is Warfarin and Anticoagulant Meds if any: NOT Prescribed or Continued at Discharge
[2018-04-04] MEDS ORDERED: ATORVASTATIN CA80 M1 PO ×2 (14:58→15:47)
[2018-04-04] MEDS ORDERED: ASPIRIN EC81 M1 PO ×2 (14:58→15:47)
[2018-04-04] MEDS ORDERED: NICOTINE PATCH1 EAC3 TOP ×2 (14:59→15:47)
--- NOTE | 2018-04-04 15:55 | Discharge Summary ---
Visit Information Visit Dates Admission Date: 04/03/18 Discharge Date: 04/04/18 Hospital Course Course Attending Physician: Nadir MCNEILL,John Paul Hightower Primary Care Physician: Mindi MCNEILL,Austin Méndez Hospital Course: HOSPITAL COURSE: Patient is a 57-year-old female with past medical history of fibromyalgia, hyperlipidemia, Gregoria's thyroiditis came with a chief complaint of chest pain. Patient stated that her chest pain has been going on since past 3 days prior to admission describing it to be it is pressure-like and achy in nature and sharp intermittently and a 7/10 at worst. Patient also reports of shortness of breath on exertion and associated nausea. Patient states that she feels so weak that she has not moved a lot in the past 3 days and has been on the couch most of the time. Of note patient had chest pain 5 years ago and was diagnosed with costochondritis. At that time she had a stress test done which was negative for any cardiac abnormalities. Patient states that she continues to smoke around half a pack to a pack a day and stated that she wants to abstain while in hospital and refused nicotine patch. Patient follows up with Dr. Obregon outpatient. Otherwise patient follows with a natrupathic physician and does not take any home medications. --- EMERGENCY DEPARTMENT: EKG: shows old Q waves in inferior leads, ST segment depression in V4 V5, and new right bundle branch block as compared to her previous EKG from 2003. Patient also has diffuse nonspecific T wave changes. TROPONINS: Negative X3 CXR: Insignficant for any acute pulmonary pathology. --- Echocardiogram: Normal size left ventricle. Normal left ventricular wall thickness. Normal left ventricular ejection fraction visually estimated at > 60%. Abnormal relaxation filling pattern of the left ventricle for age (stage 1 diastolic dysfunction). Mild mitral annular calcification. Trace tricuspid regurgitation. Trace pulmonic regurgitation. LABS: Triglycerides 173 H, Cholesterol 294 H, LDL Cholesterol, Calc 205 H, HDL Cholesterol 55, Cholesterol/HDL Ratio 5 H, TSH 0.652, Free T4 0.98, TELEMETRY ADMISSION: Pt is a 57YOF with ~40pack year smoking hx with a PMH of fibromyalgia, HLD, Gregoria's Thyroiditis with recent US reported by pt to show 2 nodules 2-3mm each, chronic Lyme disease with possible concurrent babesiosis, and costochondritis 5 years ago for all of which she is using natropathic remedies. She presented to the ED with intermittent chest pain and tightness that radiates into the L axilla and arms BL associated with nausa and dyspnea on exertion. CXR showed no thoracic pathologies. EKG showed old Q waves in the inferior leads, ST depression in V4 and V5, new RBBB, new LPFB and diffuse, nonspecific T wave abnormalities. Last known EKG in 2003 showed NSR with none of the above findings. EKG obtained from PCP performed on 01/18/2018 shows RBBB and potential lateral ischemia. Troponins x3 were WNL. Lipid panel showes elevated cholesterol, TGs, and LDL with chol/HDL of 5. PROBLEM LIST: 1. Chest Pain 2. History of Hashimotos Thyroiditis 3. History of Hyperlipidemia 4. History of Fibromyalgia Pt reported the following naturopathic medications: * Banderol 25 drops BID * Samento 25 drops BID * Stevia 15 drops BID * Artemisinin 1 pill BID for 2weeks, then 2 weeks with no pill, then repeat Chest pain with associated dyspnea and nausea * Pt's chest pain cannot be attributed to EKG finding at this time. However, serial troponins indicated there is no acute myocardial injury. Symptoms consistent with acute coronary syndrome. Based on risk, patient has been started on ASA, enoxaparin, and atorvastatin. Patient has been extensively counseled on smoking cessation. ECHO cardiogram demonstrated normal EF of 60%. Patient seen by Cardiology, Dr. Brock and advised to have nuclear stres test arranged outpatient given negative troponins, no significant ST changes in EKG and a normal ECHO cardiogram. Patient remained asymptomatic during her stay and comfortable with no chest pain, palpitations, shortness of breath. Advised to follow up with Dr. Brock in office in 1-2 weeks and return to ED for further signficant chest pain. Tobacco Use * Pt has an extensive smoking hx. Has been counseled extensively on cessation. Discharged with nicotine patches as she believes they are helping her currently. Hyperlipidemia * Pt has hx of HLD for which she has previously refused medical therapy. She has been placed on a statin and agrees to continue after discharge. Gregoria's Thyroiditis * Stable during admission. TSH and freeT4 WNL. Pt reports outpatient US performed several weeks ago with small nodules found. She does not know of results and can't remember the name of the site where the US was performed. Fibromyalgia * Denied symptoms on admission. Stable. Diet: heart healthy DVT: enoxaparin Code: full Allergies: Coded Allergies: No Known Drug Allergies (NONE 04/03/18) Disposition Summary Disposition Principal Diagnosis: Abnormal EKG Additional Diagnosis: Hyperlipidemia Discharge Disposition: home or self care Discharge Instructions General Discharge Information Code Status: Full Code Patient's Diet: Heart Healthy Patient's Activity: as tolerated Follow-Up Instructions/Appts: Please follow up with Dr. Brock of Cardiology within 1 week of discharge. Follow up with your PCP within 1 week of discharge. Medications at Discharge Discharge Medications: Start taking the following new medications: Aspirin (Ecotrin*) 81 MG TABLET. 1 Tablet ORAL DAILY Qty = 30 No Refills Instructions: . Comments: Last Taken:04/04/18 Time:0800 Atorvastatin Calcium (Atorvastatin Calcium) 80 MG TABLET 1 Tablet ORAL DAILY Qty = 30 No Refills Instructions: . Comments: Last Taken:04/04/18 Time:1600 Nicotine (Nicotine Patch) 21 MG/24 HOUR PATCH.TD24 1 Patch On the skin DAILY Qty = 28 No Refills Instructions: . Comments: Last Taken:04/04/18 Time:0800 Copies To: Mindi MCNEILL,Austin Méndez; Vinod MCNEILL,Surendra
== END 2018-04-04 17:30 | DRG 316 ==
LOC: ERH 09:42 → ERHI 13:00 → 1NO 13:00 → ENRESERV 15:43 → ENTRNSPT 16:03 → EDTRNSPTSTS 16:12 → EDTRNSPT 16:12 → 1NO 16:25 → CMPTRNSPT 16:39 → ENPENDDIS 04-04 15:47 → 1NO 04-04 17:30
PROVIDERS: Physician Assistant Medical
DX: R94.31 Abnormal electrocardiogram [ECG] [EKG] (principal); R07.9 Chest pain, unspecified; M79.7 Fibromyalgia; E78.5 Hyperlipidemia, unspecified; E06.3 Autoimmune thyroiditis; F17.210 Nicotine dependence, cigarettes, uncomplicated; I45.10 Unspecified right bundle-branch block; Z86.19 Personal history of other infectious and parasitic diseases
CPT/HCPCS: 1NP; 36592; 71046; 81001; 82436; 93005; 93010; 93306; 96360; 96361; J1650; J3490; J7120